=== PATIENT | female | born 1995 | race Caucasian/White ===

== ENCOUNTER 2018-05-07 04:49 | Emergency (ER) | payer SELFPAY ==
[2018-05-07] MEDS ORDERED: NALOXONE HCL INJ 2 MG/2 ML DISP.SYRIN IV ONE (04:53)
[2018-05-07] MEDS ORDERED: METOCLOPRAMIDE HCL INJ/PF 10 MG/2 ML SDV IV ONE (04:54)
--- NOTE | 2018-05-07 04:58 | ER Document Report ---
ED General - General Stated Complaint: UNRESPONSIVE Time Seen by Provider: 05/07/18 04:53 Notes: Patient is a 22-year-old female was brought in by her boyfriend unresponsive. They both use heroin and tonight he did heroin and then he fell asleep. When he woke up he saw her unresponsive and brought her into the ER. She was apneic but still had a pulse. He denies her having any other medical problems and says she is otherwise healthy other than history of depression. Past Medical History - Social History Smoking Status: Unknown if Ever Smoked Frequency of alcohol use: None Drug Abuse: Heroin Family History: Reviewed & Not Pertinent Review of Systems - Review of Systems -: Yes ROS unobtainable due to patient's medical condition - She is unresponsive Physical Exam - Vital signs Vitals: Resp BP Pulse Ox 41 H 134/77 H 95 05/07/18 04:51 05/07/18 04:51 05/07/18 04:51 - Notes Notes: General Appearance: She is completely unresponsive and apneic. Cyanotic appearing. Vitals: reviewed, See vital signs table. Head: no swelling or tenderness to the head Eyes: Pupils are pinpoint. Mouth: No decreasd moisture Throat: No tonsillar inflammation, No airway obstruction, No lymphadenopathy Neck: Supple, no neck tenderness, No thyromegaly Lungs: Completely apneic. With manual ventilation patient has clear lung sounds bilaterally. Heart: Normal rate, Regular rythm, No murmur, no rub Abdomen: Normal BS, soft, No rigidity, No abdominal tenderness, No guarding, no rebound, no abdominal masses, no organomegaly Extremities: good pulses in all extremities, no edema. multiple bruises on thighs likely representing skin popping. Skin: warm, dry, appropriate color, no rash Neuro: Unresponsive. No response to painful stimuli. After Narcan is given patient wakes up but is still a bit somnolent. She moves all 4 extremities and is strong on exam her Narcan is given. After Narcan patient's pupils are equal and dilated. Course - Re-evaluation Re-evalutation: 05/07/18 05:12 Patient is awake alert and is requesting a leave. I went talk to patient and her boyfriend. They want to leave because she apparently has family that work at this hospital and she does not want to find out that she is here. I informed him that under hip along that we are not allowed to inform anybody that she is here as long she requests that we do not tell anybody. I informed him that I really want her to stay at least an hour second make sure that when the Narcan has worn off that she is not becoming apneic again. After long discussion and informing her that if she goes home for an observation period that she could easily , her and her boyfriend have decided and agreed to at least 1 hour observation. I informed the nurse of the patient's request that no one knows that they are here and the nurse will talk to registration about making sure that they are aware that Nobody who calls in is allowed to know that the patient is here. 05/07/18 05:13 05/07/18 06:24 Is been over an hour since patient received Narcan. She looks and feels well. She is able stand and walk with normal gait without any staggering. Her breathing respiratory rate is normal. Pulse oximetry is normal on room air. I talked to patient length about the dangers of heroin. She is understanding of this and said she will never use heroin again. Informed her that hope she never does however symptoms pupils to make mistakes and therefore did prescribe her Narcan informed her to keep this with her at all times. I informed her if she ever has to use it but if she does at least she has this medication to save her. I informed her she must return to ER immediately if she ever has to use this medication. Encouraged her return to ER immediately if she has difficulty breathing, feels abnormally somnolent, or if she has any further concerns. I have asked patient she felt that she needs counseling to help with rehabilitation. Patient said no. Patient will be discharged home. Dictation of this chart was performed using voice recognition software; therefore, there may be some unintended grammatical errors. - Vital Signs Vital signs: Temp Pulse Resp BP Pulse Ox 97.6 F 18 102/61 95 05/07/18 05:22 05/07/18 06:01 05/07/18 06:01 05/07/18 06:01 - Laboratory Result Diagrams: 05/07/18 04:55 05/07/18 04:55 Laboratory results interpreted by me: 05/07/18 05/07/18 04:55 04:55 WBC 13.5 H Absolute Neutrophils 8.3 H Potassium 3.5 L Glucose 209 H AST 56 H ALT 59 H - EKG Interpretation by Me Additional EKG results interpreted by me: 05/07/18 05:16 EKG is reviewed and interpreted by me. EKG shows sinus tachycardia with a rate of [address] segment elevation or depression. No ischemic T-wave inversions. NV interval, QRS duration, QTc intervals are within normal range. No old EKG available for comparison. Discharge - Discharge Clinical Impression: Opiate overdose Qualifiers: Encounter type: initial encounter Injury intent: accidental or unintentional Qualified Code(s): T40.601A - Poisoning by unspecified narcotics, accidental ( unintentional), initial encounter Condition: Good Disposition: HOME, SELF-CARE Additional Instructions: I have prescribed you Narcan. People will still potentially overdose or take too much of an opiate medication. Please keep the Narcan with you so as if you do overdose again you have a medication that can reverse the overdose so that you do not stop breathing. If you have to use the Narcan you should return to the ER immediately. Please consider seeking help for their opiate addiction. We want what is best for you as we do not want you to from this as it can be life-threatening and almost cost you your life tonight. Return to the ER at anytime if you have excessive sleepiness, guilty breathing, fevers, or or if you feel unwell. Dictation of this chart was performed using voice recognition software; therefore, there may be some unintended grammatical errors. Prescriptions: Naloxone HCl [Narcan] 4 mg NS HERLINDA #1 spray
[2018-05-07 05:05] LABS: ABSOLUTE EOSINOPHILS # (AUTO) 0.1 10^3/uL (0.0-0.6); ABSOLUTE LYMPHOCYTES (AUTO) 4.6 10^3/uL (0.5-4.7); ABSOLUTE MONOCYTES (AUTO) 0.6 10^3/uL (0.1-1.4); ABSOLUTE NEUT (AUTO) 8.3 10^3/uL (1.7-8.2); BASOPHILS % (AUTO) 0.1 % (0-2); EOSINOPHILS % (AUTO) 0.9 % (0-6); HEMATOCRIT 40.1 % (36.0-47.0); HEMOGLOBIN 13.8 g/dL (12.0-15.5); LYMPHOCYTES % (AUTO) 33.8 % (13-45); MEAN CORPUSCULAR HEMOGLOBIN 31.4 pg (27.0-33.4); MEAN CORPUSCULAR HGB CONC 34.4 g/dL (32.0-36.0); MEAN CORPUSCULAR VOLUME 91 fl (80-97); MONOCYTES % (AUTO) 4.2 % (3-13); PLATELET COUNT 263 10^3/uL (150-450); RED CELL DISTRIBUTION WIDTH 13.8 % (11.5-14.0); TOTAL CELLS COUNTED % (AUTO) 100 %; WHITE BLOOD COUNT 13.5 10^3/uL (4.0-10.5)
[2018-05-07 05:17] LABS: ALANINE AMINOTRANSFERASE 59 U/L (9-52); ALBUMIN 4.7 g/dL (3.5-5.0); ALKALINE PHOSPHATASE 56 U/L (38-126); ANION GAP 15 (5-19); ASPARTATE AMINO TRANSFERASE 56 U/L (14-36); BILIRUBIN,DIRECT 0.3 mg/dL (0.0-0.4); BILIRUBIN,TOTAL 0.6 mg/dL (0.2-1.3); BLOOD UREA NITROGEN 12 mg/dL (7-20); CALCIUM 9.1 mg/dL (8.4-10.2); CARBON DIOXIDE 23 mmol/L (22-30); CHLORIDE 105 mmol/L (98-107); GLUCOSE 209 mg/dL (75-110); POTASSIUM 3.5 mmol/L (3.6-5.0); SODIUM 142.8 mmol/L (137-145); TOTAL PROTEIN 7.4 g/dL (6.3-8.2)
--- NOTE | 2018-05-07 05:24 | RADIOLOGY REPORT (SQ) ---
EXAM DESCRIPTION: XR CHEST 1 VIEW COMPLETED DATE/TME: 05/07/2018 04:53 CLINICAL HISTORY: 22 years, Female, apnea from heroin OD COMPARISON: None. NUMBER OF VIEWS: One TECHNIQUE: AP view the chest LIMITATIONS: None. FINDINGS: The lungs are clear. The heart is normal in size. There is no pneumothorax or pleural effusion. There is no acute fracture IMPRESSION: No acute cardiopulmonary abnormality 2010 [employer]- All Rights Reserved
[2018-05-07 06:12] VITALS: BP 102/61
== END 2018-05-07 06:30 | disposition home or self-care (01) ==
LOC: EEVIPCON 04:49 → ER 04:49
DX: T40.601A Poisoning by unspecified narcotics, accidental (unintentional), initial encounter (principal); X58.XXXA Exposure to other specified factors, initial encounter
CPT/HCPCS: 99284; 96374; 96375; 36415; 84703; 85025; 80053; 84484; 71045; J2765; J2310